=== PATIENT | male | born 1965 | race Caucasian/White ===

== ENCOUNTER 2017-04-06 14:28 | Emergency (ER) | payer OTHER ==
[~2017-04-06] VITALS: Ht 170.2 cm; Wt 75.0 kg
[~2017-04-06 14:28] MED LIST: ERYT.5%O LEFT EYE; LORT5TAB PO; Z.0.NO CURRENT MEDS
[2017-04-06 14:30] VITALS: BP 208/107; PULSE 83; RESP 14; TEMP 98; O2SAT 99
--- NOTE | 2017-04-06 16:46 | PD ---
HPI Chief Complaint: Back/ Neck Pain or Injury Time Seen by Provider: 16:43 Travel History International Travel<30 days: No Contact w/Intl Traveler<30days: No Traveled to known affect area: No History of Present Illness HPI 51 YO M presents to the ED for evaluation of 5/10 left-sided constant, crampy lower back pain. Onset this morning while the patient was working. 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 1010 at onset. He denies radiation of the pain, numbness, tingling, weakness, limitations to range of motion of the extremities. He denies saddle anesthesia, foot drop, urinary or fecal incontinence. Pain is worsened by certain motions. He has been ambulatory since the accident. He states that he treated with 2 BC powders with some improvement of his pain. PFSH Past Medical History Medical History: Denies Significant Hx Diminished Hearing: No Tetanus Vaccination: < 5 Years Influenza Vaccination: Yes Past Surgical History Surgical History: No Previous Surgery Social History Alcohol Use: Yes (ocassionally ) Tobacco Use: Yes (1 pack per day) Substance Use: No (pt denies) Allergies-Medications (Allergen,Severity, Reaction): Coded Allergies: No Known Allergies (Unverified , 04/06/17) Reported Meds & Prescriptions Reported Meds & Active Scripts Active Flexeril (Cyclobenzaprine HCl) 10 Mg Tab 10 Mg PO TID Ibuprofen 800 Mg Tab 800 Mg PO Q8H Review of Systems Except as stated in HPI: all other systems reviewed are Neg Physical Exam Narrative GENERAL: Well-nourished, well-developed white male in no acute distress. SKIN: Focused skin assessment warm/dry. HEAD: Normocephalic. EYES: No scleral icterus. No injection or drainage. NECK: Supple, trachea midline. No JVD or lymphadenopathy. CARDIOVASCULAR: Regular rate and rhythm without murmurs, gallops, or rubs. RESPIRATORY: Breath sounds equal bilaterally. No accessory muscle use. GASTROINTESTINAL: Abdomen soft, non-tender, nondistended. MUSCULOSKELETAL: No cyanosis, or edema. Straight leg raise negative bilaterally. 5/5 strength of plantarflexion, dorsiflexion, knee and hip flexion bilaterally. No pain elicited with internal and external rotation of the legs. Neurovascularly intact distally. BACK: No midline tenderness to palpation. No obvious deformity. No CVA tenderness. Palpable spasm and tenderness of the left erector spinae muscles. Data Data Last Documented VS Vital Signs Date Time Temp Pulse Resp B/P (MAP) Pulse Ox O2 Delivery O2 Flow Rate FiO2 04/06/17 16:03 76 17 04/06/17 14:30 98.0 208/107 (140) 99 Orders Orders Ketorolac Inj (Toradol Inj) (04/06/17 17:00) Orphenadrine Inj (Norflex Inj) (04/06/17 17:00) Tramadol (Ultram) (04/06/17 17:00) Ed Discharge Order (04/06/17 17:14) MDM Medical Decision Making Medical Screen Exam Complete: Yes Emergency Medical Condition: Yes Differential Diagnosis Muscle strain versus muscle spasm versus radiculopathy versus musculoskeletal pain versus other Narrative Course 51 YO M presents to the ED for evaluation of 5/10 left-sided constant, crampy lower back pain. 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 He denies radiation of the pain, numbness, tingling, weakness, limitations to range of motion of the extremities , saddle anesthesia, foot drop, urinary or fecal incontinence. Pain is worsened by certain motions. Vitals reviewed. Patient is hypertensive on presentation. Physical exam reveals muscle spasm and tenderness of the paraspinal musculature on the left. Negative straight leg raise bilaterally. 5 /5 strength in lower extremities bilaterally. This is muscle spasm and muscle strain. Patient was administered IM Toradol and Norflex. He is prescribed a short course of anti-inflammatories and muscle relaxants. He is instructed to return to normal, gentle activity as tolerated, avoid mixing alcohol or driving while taking muscle relaxants. We discussed reasons to return to the ED. Patient is agreeable with the care plan. He is stable and discharged home. Diagnosis Primary Impression: Low back strain Qualified Codes: S39.012A - Strain of muscle, fascia and tendon of lower back , initial encounter Additional Impression: Spasm of back muscles Referrals: Primary Care Physician Patient Instructions: General Instructions, Low Back Strain (ED), Muscle Spasm (ED) Additional Instructions: Rest, hydrate. Resume normal , gentle activities as tolerated. A mixture of activity interspersed with short period of rest is best for back pain. No strenuous physical activities for the next few days Take medications as prescribed to reduce pain and inflammation. Begin ibuprofen tomorrow. Begin Flexeril in [address] taking Flexeril as it may cause drowsiness. Do not mix Flexeril with alcohol as it may cause respiratory depression. Applying ice or heat to areas with sore muscles may help to improve your symptoms. Do not apply ice/ heat for longer than 20 m/h. Keep a log of your blood pressure to present to your primary care provider at the next visit. Follow-up with your primary care provider. Return to the ED for any urgent or emergent medical condition. Med/Other Pt SpecificInfo: Prescription(s) given Scripts Cyclobenzaprine (Flexeril) 10 Mg Tab 10 MG PO TID for Muscle Spasm, #15 TAB 0 Refills Prov: Lizett Badillo MD 04/06/17 Ibuprofen (Ibuprofen) 800 Mg Tab 800 MG PO Q8H, #21 TAB 0 Refills Prov: Lizett Badillo MD 04/06/17 Disposition: 01 DISCHARGE HOME Condition: Stable Kylah Pearson Apr 06, 2017 16:46
[2017-04-06] MEDS ORDERED: IBUP800T23 PO (16:58)
[2017-04-06] MEDS ORDERED: CYCL1TAB29 PO (16:58)
[2017-04-06] MEDS ORDERED: KETOROLAC TROMETHAMINE 60 MG/2 ML (IM) VIAL IM ONE (17:00)
[2017-04-06] MEDS ORDERED: traMADol HCL 50 MG TAB PO ONE (17:00)
[2017-04-06] MEDS ORDERED: ORPHENADRINE INJ 60 MG/2 ML AMP IM ONE (17:00)
[2017-04-06 17:25] VITALS: BP 200/98; TEMP 97.8
== END 2017-04-06 17:25 | disposition home or self-care (01) ==
LOC: NEPD 14:28
DX: S39.012A Strain of muscle, fascia and tendon of lower back, initial encounter (principal); M62.830 Muscle spasm of back; X50.9XXA Other and unspecified overexertion or strenuous movements or postures, initial encounter; Y93.H3 Activity, building and construction; Y99.0 Civilian activity done for income or pay
CPT/HCPCS: 96372; 99284; J1885; J2360